=== PATIENT | female | born 1990 ===

== ENCOUNTER 2017-02-14 09:27 | Inpatient (IN) | payer MEDICAID ==
[2017-02-14 09:54] VITALS: BMI 31.8
[2017-02-14] MEDS ORDERED: ceFAZolin 2 GM in Sodium Chloride 0.9% 100 ML IVPB ONE (09:54)
[2017-02-14] MEDS: Lactated Ringer's 1,000 ML IV SCH ×3 (10:02→21:11)
--- NOTE | 2017-02-14 10:16 | OBHP ---
Datetime: 02/14/2017 10:09 IP Adm Impression: Term, intrauterine IP Admit Plan: Initiate Section protocol IP Chief Complaint: Uterine contractions Datetime: 02/14/2017 10:04 Admit Comment, IP Provider: 26 yo edc 02/24 by 7wk us presents w/ c/o suprapubic pressure and low er back pain intermittent assoc with urge to defecate. Denies decreased fm, srom or vag bleeding. ob hx sign for GDMA1 _ UTI. last po intake before 12am POBX: CD X1 pt states @ 6mo's- weighted 6lb at and was in hospital after for 4 -8wks per pt PMHX: DENIES PSHX: DENIES MEDIC: PNV NKDA SHX: DENIES ETOH, DRUGS OR TOBACCO I: 38.4WKS LABOR PRIOR CD DECLINING P: CONSENTED FOR AND BLOOD TRANSFUSION. RISKS OF CD VS D/W PT. Extremities - PN: Normal Abdomen - PN: Normal Back - PN: Normal Breast - PN: Not Done Lungs - PN: Normal Heart - PN: Normal Thyroid - PN: Not Done Neurologic - PN: Normal HEENT - PN: Normal General - PN: Normal Presentation-Admit: Vertex FHR - Baseline A Provider: 130 Membranes, Provider: Intact Contraction Comments Provider: q3-4 Comments, ACOG Physical Exam: O+/ RI/HIV RPR NEG x2/hepBneg Gestation - Est Wks by US: 38.4 Vital Signs Provider: Reviewed; Within Normal Limits NICHD Variability Prov Fetus A: Moderate 6-25bpm NICHD Accel Fetus A IP Provider: 15X15 FHR Category Provider Fetus A: Category I NICHD Decel Fetus A IP Provider: None Dilatation, Provider: 3 Effacement, Provider: 70 Station, Provider: -2 Genitourinary Exam: Normal
[2017-02-14] MEDS ORDERED: Morphine 1 mg/ml preservative-free Inj(Duramorph) ONE (10:29)
[2017-02-14] MEDS ORDERED: OXYTOCIN IV ONE (10:32)
[2017-02-14] MEDS ORDERED: [UNRECOGNIZED DRUG - OTHER] IV ONE (10:32)
[2017-02-14 10:46] LABS: BASO % 0.2 % (0.0-2.0); EOS # 0.1 K/uL (0.0-0.7); EOS % 0.7 % (0.0-4.0); HEMOGLOBIN 11.1 g/dL (12.0-16.0); LYMPH # 2.6 K/uL (1.0-4.3); LYMPH % 29.5 % (20.0-40.0); MEAN CELL VOLUME 80.7 fl (81.0-99.0); MEAN CORPUSCULAR HEMOGLOBIN 26.1 pg (27.0-31.0); MEAN CORPUSCULAR HGB CONC 32.3 g/dL (33.0-37.0); MEAN PLATELET VOLUME 8.9 fl (7.2-11.7); MONO # 0.8 K/uL (0.0-0.8); MONO % 9.4 % (0.0-10.0); NEUT # 5.3 K/uL (1.8-7.0); NEUT % 60.2 % (50.0-75.0); NRBC % 0.1 % (0.0-0.0); RBC 4.27 Mil/uL (3.80-5.20); RED CELL DISTRIBUTION WIDTH 17.3 % (11.5-14.5); WHITE BLOOD COUNT 8.8 K/uL (4.8-10.8)
[2017-02-14] MEDS ORDERED: Oxycodone/Acetaminophen 5/325 mg Tab PO PRN ×2 (12:43→16:27)
[2017-02-14] MEDS ORDERED: Lactated Ringer's 1,000 ML IV SCH (14:00)
[2017-02-14 15:14] VITALS: BP 121/78; PULSE 86; RESP 18; TEMP 98.5; O2SAT 100
--- NOTE | 2017-02-14 21:47 | OBDS ---
DELIVERY PERSONNEL Nurse Reformatory Attendant Certified: Delivery Doctor: Barrett Blue MD Scrub Nurse: Orin Dominguez [employer]BT [employer] Custodian: Sydnee Lockwood RN/Randy Robertson Anesthesiologist: Otto Terrell MD Coal Hauler Operator: floridalma Resident: MATERNAL INFORMATION Delivery Anesthesia: Spinal Medications in Delivery: Pitocin 20 units in 1000 cc bag Estimated Blood Loss (ml): 700 Placenta Cultured: No Maternal Complications: Other Other Maternal Complications: Previous C section-contraction and dilated RN Comments: Repeat C section tolerated well by pt Delivery attended by and ( resident) Provider Comments: Op Note preop dx:38.3wks; labor; prior CD postop dx: same procedure: repeat cd surg: angela pacheco 1st asst: escobar pacheco anesth spinal-- dr arechiga findings: meconium stained fluid; viable male; 9_9 3970g path: none licona to drainage neon to nbn pt to rr ebl 700 LABOR SUMMARY EDC: 02/25/2017 00:00 No. Babies in Womb: 1 LABOR INFORMATION Onset of Labor: 02/14/2017 05:00 Group B Beta Strep: Done, Result Unknown STAGES OF LABOR Stage 3 hrs: 0 Stage 3 min: 1 Total Time in Labor hrs: 6 Total Time in Labor min: 42 BABY A INFORMATION Delivery Date/Time: 02/14/2017 11:41 Method of Delivery: Born in Route : No : N/A Forceps: N/A Vacuum Extraction: N/A Shoulder Dystocia : No SHOULDER DYSTOCIA BABY A Infant Delivery Date/Time: 02/14/2017 11:41 PRESENTATION/POSITION BABY A Presentation: Cephalic Cephalic Presentation: Vertex Breech Presentation: N/A PLACENTA INFORMATION BABY A Placenta Delivery Time : 02/14/2017 11:42 Placenta Method of Delivery: Spontaneous Placenta Status: Delivered SCORES BABY A Heart Rate 1 min: >100 bpm Resp Effort 1 min: Good Cry Reflex Irritability 1 min: Cough or Sneeze or Pulls Away Muscle Tone 1 min: Active Motion Color 1 min: Body Velva, Extremities Blue Resuscitation Effort 1 min: Tactile Stimulation SCORE 1 MIN: 9 Heart Rate 5 min: >100 bpm Resp Effort 5 min: Good Cry Reflex Irritability 5 min: Cough or Sneeze or Pulls Away Muscle Tone 5 min: Active Motion Color 5 min: Body Velva, Extremities Blue Resuscitation Effort 5 min: Tactile Stimulation SCORE 5 MIN: 9 INFORMATION BABY A Gestational Age at Delivery: 38.3 Gestational Status: Term Infant Outcome : Liveborn Infant Condition : Stable Infant Sex: Male IDENTIFICATION/MEDS BABY A ID Band Number: [id number] ID Band Location: Left Leg; Left Arm Vitamin K Given : Not Given Erythromycin Given: Not Given WEIGHT/LENGTH BABY A Infant Birthweight (gms): 3790 Infant Weight (lb): 8 Infant Weight (oz): 6 Infant Length Inches: 50.00 Infant Length cms: 127.0 CORD INFORMATION BABY A No. Cord Vessels: 3 Nuchal Cord : Around Neck x1, Loose Nuchal Cord Other: na True Knot: na Cord pH Baby Arterial: na Cord pH Baby Venous: na Cord Blood Taken: Yes Infant Suction: Mouth ASSESSMENT BABY A Complications: Other Complications Other: light meconium,nuchal cordx1(loose) Physical Findings at Delivery: Within Normal Limits Infant Respirations: Appears Normal Clerk Secretary/ALS Called : No Care By: /Randy Aguilera Transferred To: [facility]
[2017-02-15 09:10] LABS: HEMOGLOBIN 9.5 g/dL (12.0-16.0); MEAN CORPUSCULAR HEMOGLOBIN 25.9 pg (27.0-31.0); MEAN CORPUSCULAR HGB CONC 31.2 g/dL (33.0-37.0); RBC 3.67 Mil/uL (3.80-5.20); RED CELL DISTRIBUTION WIDTH 17.5 % (11.5-14.5); WHITE BLOOD COUNT 12.5 K/uL (4.8-10.8)
[2017-02-15 09:19] LABS: MEAN CELL VOLUME 83.2 fl (81.0-99.0)
[2017-02-16] MEDS: Lactated Ringer's 1,000 ML IV SCH (08:43)
[2017-02-16] MEDS ORDERED: Oxycodone/Acetaminophen 5/325 mg Tab PO PRN ×2 (13:25→13:26)
--- NOTE | 2017-02-17 06:57 | OBDCSUM ---
Datetime: 02/17/2017 05:30 Discharged to, Provider: Home Follow up at, Provider: [facility] Disch Instr Activity: Normal activity Disch Instr Diet: Regular Discharge Instructions, Provider: Routine instructions given Discharge Diagnosis, Provider: Term Delivered Discharge Time: 02/17/2017 05:31 Follow up in weeks, Provider: 1 week Disch Referrals: None Contraception discussed, Prov: Yes Disch Activity Restrictions: No lifting; No sexual activity; Nothing in vagina - [place], tampon s, douche Discharge Comment, Provider: 26 y/o now @ 38.4 wks had uncomplicated at term w/ C-sec tion no risk factors Delivered baby boy on 02/14/2017 @11:41, 3970 g, : 9,9 Encourage PNV 1 tab PO once daily Ibuprofen 600 mg 1 tab PO Q6h prn for moderate pain Percocet 5/325 mg 1 tab PO Q6h prn for severe pain nothing in vagina, no heavy lifting, if excessive bleeding or fever without relief from Tylenol go to ED F/U w/ [facility] in 1 week Mickey Baxter M.D. Cash Manager PGY-1 Contraception after Delivery: Foam/Condoms
--- NOTE | 2017-02-17 06:57 | OBPPN ---
Datetime: 02/17/2017 05:24 PP Pain Prov: Within normal limits PP Nausea Prov: Denies PP Flatus Prov: Yes PP BM Prov: No PP Breasts Prov: Not Done PP Heart Prov: Normal PP Lungs Prov: Normal PP Abdomen/Uterus Prov: Normal PP Lochia Prov: Normal PP Vulva/Perineum Prov: Not Done PP CVA Tenderness Prov: Not Done PP Extremities Prov: Not Done PP C/S Incision Prov: Normal PP Progress Prov: Normal PP Impression Prov: Normal progression PP Plan Prov: Continue present management PP Progress Note Prov: 26 y/o now seen and examined at bedside. Patient had uneventful overnig ht. Patient reports mild pelvic pain controlled w/ pain meds. OOB/Ambulating w/o dizziness. Breast /bottle feeding w/o difficulty. Tolerating PO diet well. Lochia is less than menses in volume. Voi ding freely w/ no blood noted. Reports bowel movement. Denies fevers, chills, n/v/d, CP/SOB, lighth eadedness and calf pain. PE: GEN: A_O, resting comfortably in bed, NAD Lung: CTA B/L, no wheezing, rhonchi, or rales CVS: S1, S2 wnl, RRR Abd: +BS, firm fundus below umbilicus. Incision dry, clean, and intact. No induration, redness, or fluctuation EXT: no edema, negative Ganga's, calves non-tender Assessment: 26 y/o now s/p on 02/14/2017 @ 11:41 tolerating pain w/ medication, guillermo erating oral intake, adequate urine output, doing well on POD3. Plan: Percocet 5/325 mg 1-2 tabs PO Q6h prn for mod/severe pain. Ibuprofen 600 mg 1 tab Q6h PO pr n for mild pain. Encourage breast feeding and ambulation. D/C today Mickey Baxter M.D. Machining Engineer PGY-1 OB Hospitalist Laura: Pt seen and examined by me. POD 3 s/p Repeat c/s, doing well, breast feed ing. Discharge home today. (ES) IP PP Procedures: None Vital Signs Provider PP: Reviewed; Within Normal Limits
--- NOTE | 2017-03-01 14:32 | PCM.OP ---
Operative Report - Operative Report Date of Surgery/Procedure: 02/14/17 Time of Surgery/Procedure: 13:00 Surgeon: Dr. Zaira Tidwell Fisher Scallop: Dr. Lana Leong, PGY3 Anesthesia/Sedation: anesthesia was spinal. Pre-Operative Diagnosis: 1. 38.3 weeks. 2. Labor. 3. History of prior delivery. Post-Operative Diagnosis: 1. 38.3 weeks. 2. Labor. 3. History of delivery by section. Indication for Surgery: Patient is a 26 year old female presented at 33.3 weeks and was noted to be an active labor with a history of a prior . Consent was given for repeat of section. Risk, benefits, and indications were discussed with patient. Of note, patient was noted to be 3 cm, 70% of presentation. Operative Findings: Meconium stained amniotic fluid. Viable male. Cephalic presentation with Apgars of 9 and 9. Weight: 3790 grams. Pathology specimens: none. Licona catheter to drain. to nursery. Patient to recovery room. Estimated blood loss was approximately 700 cc Procedure/Operation Description: Patient was taken to operating room where she underwent her spinal anesthesia without complication. She was then placed in dorsal supine position with leftward tilt and prepped and draped in a routine sterile fashion. A Pfannenstiel skin incision was made at the site of the old scar. The incision was then carried out to underlying rectus fascia which was incised at the midline extended bilaterally with the bovie. The inferior rectus fascial edge was grasped with the kochers, and the underlying rectus muscle was dissected off. Same procedure was performed along the superior rectus fascial edge. The muscle was in the midline, and the peritoneum was identified and incised superiorly and inferiorly. A bladder blade was placed and a bladder flap was created with sharp and blunt dissection. A lower uterine segment transverse incision was made with the scalpel, and the uterine cavity was entered bluntly. The uterine incision was digitally extended laterally and in a superior/inferior manner. The membrane was ruptured. Meconium fluid was noted. was delivered in a routine fashion for vertex presentation. The cord was clamped and cut and the baby's mouth and nares were suctioned. The baby was handed off to awaiting environmental services tech. Cord blood was collected. The placenta was delivered spontaneously. The uterus was exteriorized and cleared of all clots and debris. The uterine incision was reapproximated with 0-Vicryl and running locked fashion followed by an imbricated stitch using 0-monocryl. Good hemostasis was confirmed. The abdomen was irrigated, cleared of all clots and debris. The uterus was returned to the abdomen and uterine incision was reinspected. Good hemostasis was confirmed. The gutters and pelvic cavity were irrigated and cleared of all clots and debris. The peritoneum was reapproximated with 2-0 vicryl in running fashion. The fascia was re-approximated with 0-vicryl in running fashion beginning in the right lateral corner and going to midline. Followed by left lateral corner quadrant a going to the midline. Each stitch was tied sequentially. The skin was re-approximated with the ludy. Patient was taken to recovery room to satisfactory conditions. Estimated Blood Loss: 700 cc Blood Replaced: no Sponge/Instrument Count: correct Drains: licona Complications: None Specimen: none Discharge & Condition: Patient was taken to recovery room to satisfactory conditions.
== END 2017-02-17 12:30 | disposition home or self-care (01) | DRG 371 ==
LOC: H.EROB2 09:27 → H.EROB 09:27 → H.L&D 10:25 → H.EROB2 10:29 → H.OB/GYN 16:00
PROVIDERS: ADMIT Obstetrics & Gynecology; ATTEND Obstetrics & Gynecology
PROC: 10D00Z1 Extraction of Products of Conception, Low, Open Approach (ICD-10-PCS; principal; 2017-02-14)
PROC: 4A1HXCZ Monitoring of Products of Conception, Cardiac Rate, External Approach (ICD-10-PCS; 2017-02-14)
DX: O34.211 Maternal care for low transverse scar from previous cesarean delivery (principal); N85.8 Other specified noninflammatory disorders of uterus; O77.0 Labor and delivery complicated by meconium in amniotic fluid; Z37.0 Single live birth; O69.81X0 Labor and delivery complicated by cord around neck, without compression, not applicable or unspecified; Z3A.38 38 weeks gestation of pregnancy